=== PATIENT | male | born 1955 | race Caucasian/White ===

== ENCOUNTER 2018-07-18 08:54 | Emergency (ER) | payer SELFPAY ==
[2018-07-18 10:12] LABS: Absolute Monocytes 0.6 K/uL (0.1-1.3); Absolute Neutrophil 3.6 K/uL (1.8-8.0); Basophils % 1.1 % (0-1.3); Hematocrit 45.9 % (39.6-49.0); Lymphocytes % 19.6 % (15.3-44.8); MPV 8.5 fL (7.6-11.3); Monocytes % 11.3 % (3.3-12.3); RBC Red Blood Cell Count 4.56 M/uL (4.33-5.43)
[2018-07-18] MEDS ORDERED: HYDROCODONE/APAP 7.5/325 MG TAB ONE (10:14)
[2018-07-18 10:30] LABS: Albumin 3.5 g/dL (3.4-5.0); Bilirubin Direct 0.2 mg/dL (0-0.2); Bilirubin Total 0.6 mg/dL (0.2-1.0); Protein, Total 7.4 g/dL (6.4-8.2)
[2018-07-18 10:35] LABS: Potassium 2.9 mmol/L (3.5-5.1)
--- NOTE | 2018-07-18 11:16 | RAD REPORT ---
EXAM DESCRIPTION: CT - Stone Protocol - 07/18/2018 10:53 am CLINICAL HISTORY: Abdominal pain. Right groin pain COMPARISON: None. TECHNIQUE: Computed axial tomography of the abdomen pelvis was obtained without oral or IV contrast. Lack of IV and oral contrast limits evaluation of solid organs, bowel, and vessels. Coronal reformat camila images were obtained and reviewed. All CT scans are performed using dose optimization technique as appropriate and may include automated exposure control or mA/KV adjustment according to patient size. FINDINGS: Small nonobstructing bilateral renal calculi. Ureteral calculus is not seen. A bladder corina culus is not noted Fatty liver. Splenic granulomata. Tiny left adrenal nodule suspected. Right adrenal gland unremarkable. Pancreas appears grossly normal Diverticula stem from the colon without evidence of diverticulitis. The appendix appears normal Spondylosis involves the lumbar spine resulting spinal stenosis IMPRESSION: Small nonobstructing renal calculi
[2018-07-18] MEDS ORDERED: POTASSIUM 25 MEQ EFFERV TAB ONE ×2 (11:20→13:03)
[2018-07-18] MEDS ORDERED: KETOROLAC 30 MG/ML INJ ONE (11:46)
--- NOTE | 2018-07-18 12:16 | RAD REPORT ---
EXAM DESCRIPTION: US - Scrotum Testicles - 07/18/2018 12:03 pm CLINICAL HISTORY: Scrotal pain COMPARISON: None FINDINGS: Right testicle measures 3.2 x 1.9 x 3 centimeters. Echotexture is homogeneous. Normal bloo d flow Left testicle measures 3.4 x 1.6 x 2.7 centimeters. Echotexture is homogeneous. Normal blood flow The epididymides are normal in size and echotexture. Normal blood flow is seen. A 4 millimeter right epididymal cyst IMPRESSION: 4 millimeter right epididymal cyst Otherwise unremarkable exam
[2018-07-18] MEDS ORDERED: NA CHLORIDE 0.9% 1,000 ML ONE (12:26)
--- NOTE | 2018-07-18 12:35 | EDPHYS ---
Physician Documentation [facility] Name: Mahad Jamison Age: 62 yrs Sex: Male : 1955 Arrival Date: 07/18/2018 Time: 08:58 Bed 18 Private MD: ED Physician Dante Prajapati HPI: 07/18 09:45 This 62 yrs old Male presents to ER via Ambulatory with complaints of Groin cp Pain. 09:45 The patient presents with scrotal pain, of the right side, tenderness, of the right cp roin and right testicle, of the right inguinal area. 09:45 Onset: The symptoms/episode began/occurred 2 week(s) ago. Associated signs and cp symptoms: Pertinent negatives: abdominal pain, constipation, diarrhea, dysuria, fever, hematuria. Severity of symptoms: in the emergency department the symptoms are unchanged, despite home interventions. Historical: - Allergies: 09:18 No Known Allergies; em - Home Meds: 09:18 None [Active]; em - PMHx: 09:18 None; em - PSHx: 09:18 None; em - Immunization history:: Adult Immunizations up to date. - Social history:: Smoking status: unknown. - Ebola Screening: : Patient negative for fever greater than or equal to 101.5 degrees Fahrenheit, and additional compatible Ebola Virus Disease symptoms Patient denies exposure to infectious person Patient denies travel to an Ebola-affected area in the 21 days before illness onset No symptoms or risks identified at this time. ROS: 09:50 Constitutional: Positive for chills, Negative for body aches, fever, poor PO intake. cp 09:50 Eyes: Negative for injury, pain, redness, and discharge. cp 09:50 ENT: Negative for drainage from ear(s), ear pain, sore throat, difficulty swallowing, difficulty handling secretions. 09:50 Cardiovascular: Negative for chest pain, edema, palpitations. 09:50 Respiratory: Negative for cough, shortness of breath, wheezing. 09:50 Abdomen/GI: Negative for abdominal pain, nausea, vomiting, and diarrhea, constipation, black/tarry stool, rectal bleeding. 09:50 Back: Negative for pain at rest, pain with movement, radiated pain. 09:50 : Positive for testicular pain right groin pain, Negative for urinary symptoms, flank pain. 09:50 Skin: Negative for cellulitis, rash. 09:50 Neuro: Negative for altered mental status, headache, weakness. 09:50 All other systems are negative. Exam: 10:00 Constitutional: The patient appears in no acute distress, alert, awake, cp non-diaphoretic, non-toxic, well developed, well nourished. 10:00 Head/Face: Normocephalic, atraumatic. cp 10:00 Eyes: Periorbital structures: appear normal, Conjunctiva: normal, no exudate, no injection, Sclera: no appreciated abnormality, Lids and lashes: appear normal, bilaterally. 10:00 ENT: External ear(s): are unremarkable, Nose: is normal, Mouth: Lips: moist, Oral mucosa: moist, Posterior pharynx: is normal, airway is patent, no erythema, no exudate. 10:00 Chest/axilla: Inspection: normal. 10:00 Cardiovascular: Rate: normal, Rhythm: regular. 10:00 Respiratory: the patient does not display signs of respiratory distress, Respirations: normal, no use of accessory muscles, no retractions, no splinting, no tachypnea, labored breathing, is not present, Breath sounds: are clear throughout, no decreased breath sounds, no stridor, no wheezing. 10:00 Abdomen/GI: Inspection: abdomen appears normal, Bowel sounds: active, all quadrants, Palpation: abdomen is soft and non-tender, in all quadrants, rebound tenderness, is not appreciated, voluntary guarding, is not appreciated, involuntary guarding, is not appreciated, Hernia: not appreciated. 10:00 : Male external genitalia: tenderness, is palpated in the right inguinal area, of the epididymis area, that is moderate. 10:00 Skin: cellulitis, is not appreciated, no rash present. 11:14 ECG was reviewed by the Attending Physician. cp Vital Signs: 09:18 BP 188 / 93; Pulse 80; Resp 18; Temp 97.8(O); Pulse Ox 100% on R/A; Weight 72.57 kg; em Height 5 ft. 6 in. (167.64 cm); Pain 8/10; 10:00 BP 166 / 100; Pulse 67; Resp 18; Pulse Ox 99% on R/A; em 11:17 BP 180 / 83; Pulse 65; Resp 18; Pulse Ox 99% on R/A; Pain 7/10; em 09:18 Body Mass Index 25.82 (72.57 kg, 167.64 cm) em MDM: 09:08 Patient medically screened. cp 10:00 Differential diagnosis: nonspecific abdominal pain, appendicitis, UTI, urinary cp retention, prostatitis, urethritis. 12:33 Data reviewed: vital signs, nurses notes, lab test result(s), EKG, radiologic studies, cp CT scan, ultrasound. 12:33 Test interpretation: by ED physician or midlevel provider: ECG. Counseling: I had a cp detailed discussion with the patient and/or guardian regarding: the historical points, exam findings, and any diagnostic results supporting the discharge/admit diagnosis, the presence of at least one elevated blood pressure reading (>120/80) during this emergency department visit, lab results, radiology results, to return to the emergency department if symptoms worsen or persist or if there are any questions or concerns that arise at home. Response to treatment: the patient's symptoms have markedly improved after treatment, and as a result, I will discharge patient. ED course: VSS. Pain improved with meds. Will discharge to home for continued monitoring. 07/18 09:42 Order name: Basic Metabolic Panel; Complete Time: 12:11 cp 07/18 12:25 Interpretation: Normal except: K 2.9; GLUC 107; BUN 6; GFR 81. 07/18 09:42 Order name: CBC with Diff; Complete Time: 10:20 cp 07/18 09:42 Order name: Creatinine for Radiology; Complete Time: 10:20 07/18 09:42 Order name: Hepatic Function; Complete Time: 12:11 07/18 09:42 Order name: Lipase; Complete Time: 12:11 07/18 09:44 Order name: Urine Microscopic Only 07/18 09:43 Order name: US Scrotum Testicles; Complete Time: 12:25 07/18 12:31 Interpretation: Report reviewed. 07/18 10:21 Order name: CT Stone Protocol; Complete Time: 12:11 cp 07/18 12:29 Order name: Urine Dipstick--Ancillary (enter results) dh3 07/18 12:30 Order name: Urine Dipstick-Ancillary EDMS 07/18 09:42 Order name: IV Saline Lock; Complete Time: 09:54 07/18 09:42 Order name: Labs collected and sent; Complete Time: 09:54 cp 07/18 10:36 Order name: EKG: hypokalemia; Complete Time: 10:37 cp 07/18 10:36 Order name: EKG - Nurse/Tech: hypokalemia; Complete Time: 11:13 cp EC:14 Rate is 64 beats/min. Rhythm is regular. MN interval is normal. QRS interval is cp prolonged at 126 msec. QT interval is normal. Interpreted by me. Reviewed by me. Administered Medications: 10:08 Drug: [place] (7.5 mg-325 mg) 1 tabs Route: PO; em 11:00 Follow up: Response: No adverse reaction; Pain is unchanged, physician notified em 11:13 Drug: Potassium Effervescent Tablet 50 mEq Route: PO; em 12:50 Follow up: Response: No adverse reaction em 11:32 Drug: TORadol 30 mg Route: IVP; Site: right antecubital; aa5 13:02 Drug: Rocephin 1 grams Route: IV; Rate: bolus; Site: right antecubital; aa5 13:03 Not Given (Patient Refused): NS 0.9% 1000 ml IV at 1 bolus Per protocol; 1000 mL bolus em 13:03 Drug: AZITHromycin 1 grams Route: PO; em 13:03 Drug: Potassium Effervescent Tablet 50 mEq Route: PO; em Disposition: 14:16 Co-signature as Attending Physician, Dante Prajapati MD I agree with the assessment and marlon plan of care. Disposition: 07/18/18 12:35 Discharged to Home. Impression: Right epididymal cyst, Hypokalemia. - Condition is Stable. - Discharge Instructions: Potassium Content of Foods, Epididymitis, Hypokalemia, Spermatocele. - Prescriptions for Tylenol- Codeine #3 300-30 mg Oral Tablet - take 2 tablets by ORAL route every 6 hours As needed no driving while taking medication; 15 tablet. Cipro 500 mg Oral Tablet - take 1 tablet by ORAL route every 12 hours for 7 days; 14 tablet. Diclofenac Sodium 75 mg Oral Tablet, Delayed Release (E.C.) - take 1 tablet by ORAL route 2 times per day; 20 tablet. - Medication Reconciliation Form, Thank You Letter, Antibiotic Education, Prescription Opioid Use form. - Follow up: Jose Miguel Crisostomo MD; When: 2 - 3 days; Reason: Recheck today's complaints. - Problem is new. - Symptoms have improved. Signatures: Dispatcher [employer] Dante Melendez MD MD cha Munoz, Edgar, MEDICAL TECH MEDICAL TECH em Mariana Cornejo, RN RN aa5 Dante Busch PA PA cp Corrections: (The following items were deleted from the chart) 12:49 12:35 07/18/2018 12:35 Discharged to Home. Impression: Right epididymal cyst. Condition cp is Stable. Forms are Medication Reconciliation Form, Thank You Letter, Antibiotic Education, Prescription Opioid Use. Follow up: Jose Miguel Crisostomo; When: 2 - 3 days; Reason: Recheck today's complaints. Problem is new. Symptoms have improved. cp 13:05 12:49 07/18/2018 12:35 Discharged to Home. Impression: Right epididymal cyst; em Hypokalemia. Condition is Stable. Discharge Instructions: Epididymitis, Spermatocele. Prescriptions for Tylenol-Codeine #3 300-30 mg Oral Tablet - take 2 tablets by ORAL route every 6 hours As needed no driving while taking medication; 15 tablet, Cipro 500 mg Oral Tablet - take 1 tablet by ORAL route every 12 hours for 7 days; 14 tablet, Diclofenac Sodium 75 mg Oral Tablet, Delayed Release (E.C.) - take 1 tablet by ORAL route 2 times per day; 20 tablet. and Forms are Medication Reconciliation Form, Thank You Letter, Antibiotic Education, Prescription Opioid Use. Follow up: Jose Miguel Crisostomo; When: 2 - 3 days; Reason: Recheck today's complaints. Problem is new. Symptoms have improved. cp
--- NOTE | 2018-07-18 12:35 | ER ---
Nurse's Notes [facility] Name: Mahad Jamison Age: 62 yrs Sex: Male : 1955 Arrival Date: 07/18/2018 Time: 08:58 Bed 18 Private MD: Diagnosis: Right epididymal cyst;Hypokalemia Presentation: 07/18 09:15 Presenting complaint: Patient states: right testicle pain that started about 2 weeks em ago, denies redness, swelling, fever, burning with urination, reports feeling hot and cold. Transition of care: patient was not received from another setting of care. Onset of symptoms was July 05, 2018. Risk Assessment: Do you want to hurt yourself or someone else? Patient reports no desire to harm self or others. Initial Sepsis Screen: Does the patient meet any 2 criteria? No. Patient's initial sepsis screen is negative. Does the patient have a suspected source of infection? No. Patient's initial sepsis screen is negative. Care prior to arrival: None. 09:15 Method Of Arrival: Ambulatory em 09:15 Acuity: EVERARDO 3 aa5 Triage Assessment: 09:18 General: Appears in no apparent distress. uncomfortable, Behavior is calm, cooperative. em Pain: Complains of pain in right testicle. Historical: - Allergies: 09:18 No Known Allergies; em - Home Meds: 09:18 None [Active]; em - PMHx: 09:18 None; em - PSHx: 09:18 None; em - Immunization history:: Adult Immunizations up to date. - Social history:: Smoking status: unknown. - Ebola Screening: : Patient negative for fever greater than or equal to 101.5 degrees Fahrenheit, and additional compatible Ebola Virus Disease symptoms Patient denies exposure to infectious person Patient denies travel to an Ebola-affected area in the 21 days before illness onset No symptoms or risks identified at this time. Screenin:18 Abuse screen: Denies threats or abuse. Nutritional screening: No deficits noted. em Tuberculosis screening: No symptoms or risk factors identified. Fall Risk None identified. Assessment: 09:19 General: Appears in no apparent distress. uncomfortable, Behavior is calm, cooperative, em Denies fever. Pain: Complains of pain in right testicle Pain currently is 8 out of 10 on a pain scale. Pain began 2 weeks ago. Neuro: Level of Consciousness is awake, alert, obeys commands, Oriented to person, place, time, situation. Cardiovascular: Capillary refill < 3 seconds Patient's skin is warm and dry. Respiratory: Airway is patent Respiratory effort is even, unlabored, Respiratory pattern is regular, symmetrical. GI: Patient currently denies nausea, vomiting. : Genitalia appear normal Reports pain testicle, Denies burning with urination, discharge. Derm: Skin is intact, is healthy with good turgor, Skin is pink, warm \T\ dry. Musculoskeletal: Capillary refill < 3 seconds, Range of motion: intact in all extremities. 09:19 Reassessment: I agree with assessment completed by El Santos LVN . aa5 10:00 Reassessment: request something for pain, provider notified, new medication orders em received. 11:16 Reassessment: Patient appears in no apparent distress at this time. Patient and/or em family updated on plan of care and expected duration. Pain level reassessed. Patient is alert, oriented x 3, equal unlabored respirations, skin warm/dry/pink. reports pain is 7/10, provider notified, new medication orders received. Vital Signs: 09:18 BP 188 / 93; Pulse 80; Resp 18; Temp 97.8(O); Pulse Ox 100% on R/A; Weight 72.57 kg; em Height 5 ft. 6 in. (167.64 cm); Pain 8/10; 10:00 BP 166 / 100; Pulse 67; Resp 18; Pulse Ox 99% on R/A; em 11:17 BP 180 / 83; Pulse 65; Resp 18; Pulse Ox 99% on R/A; Pain 7/10; em 09:18 Body Mass Index 25.82 (72.57 kg, 167.64 cm) em ED Course: 08:58 Patient arrived in ED. mr 09:05 El Santos LVN is Primary Nurse. em 09:08 Dante Busch PA is PHCP. cp 09:08 Dante Prajapati MD is Attending Physician. cp 09:18 Arm band placed on. em 09:18 Patient has correct armband on for positive identification. Bed in low position. Call em light in reach. Side rails up X2. Adult w/ patient. Pulse ox on. NIBP on. 09:30 Triage completed. aa5 09:54 Inserted saline lock: 20 gauge in right antecubital area, using aseptic technique. ms Blood collected. 10:53 CT Stone Protocol In Process Unspecified. EDMS 12:03 US Scrotum Testicles In Process Unspecified. EDMS 12:33 Jose Miguel Crisostomo MD is Referral Physician. cp 13:04 IV discontinued, intact, bleeding controlled, No redness/swelling at site. Pressure em dressing applied. 13:04 No provider procedures requiring assistance completed. em Administered Medications: 10:08 Drug: [place] (7.5 mg-325 mg) 1 tabs Route: PO; em 11:00 Follow up: Response: No adverse reaction; Pain is unchanged, physician notified em 11:13 Drug: Potassium Effervescent Tablet 50 mEq Route: PO; em 12:50 Follow up: Response: No adverse reaction em 11:32 Drug: TORadol 30 mg Route: IVP; Site: right antecubital; aa5 13:02 Drug: Rocephin 1 grams Route: IV; Rate: bolus; Site: right antecubital; aa5 13:03 Not Given (Patient Refused): NS 0.9% 1000 ml IV at 1 bolus Per protocol; 1000 mL bolus em 13:03 Drug: AZITHromycin 1 grams Route: PO; em 13:03 Drug: Potassium Effervescent Tablet 50 mEq Route: PO; em Outcome: 12:35 Discharge ordered by MD. cp 13:05 Discharged to home ambulatory. em 13:05 Condition: good 13:05 Discharge instructions given to patient, family, Instructed on discharge instructions, follow up and referral plans. no drinking with medication, no driving heavy equipment, medication usage, Demonstrated understanding of instructions, follow-up care, medications, Prescriptions given X 3. 13:05 Patient left the ED. em Signatures: Dispatcher [employer] EDPaula EscobarozEl, OPTIONS ADVISOR OPTIONS ADVISOR Deandra Shetty ms, Audri, RN RN aa5 Dante Busch PA PA cp
[2018-07-18 12:50] LABS: Urine Bacteria <20 /HPF (NONE SEEN)
[2018-07-18 12:51] LABS: Urine Culture Reflex Order NOT NEEDED; Urine Mucus 2+ /HPF (NONE SEEN)
[2018-07-18] MEDS ORDERED: AZITHROMYCIN 250 MG TAB ONE ×2 (13:03→13:12)
[2018-07-18] MEDS ORDERED: CEFTRIAXONE/SWI 1gm 1 GM/10 ML SYR ONE (13:04)
[2018-07-18 14:13] LABS: Urine Blood TRACE (NEG); Urine Glucose NEGATIVE (NEG); Urine Protein 2+ (NEG)
--- NOTE | 2018-07-19 09:25 | EKG ---
Test Date: 2018-07-18 Test Time: 11:09:09 Composite Bond Technician: MOI MEASUREMENT RESULTS: Intervals: Rate: 64 WI: 144 QRSD: 126 QT: 462 QTc: 476 [place]: P: 78 WI: 144 QRS: 66 T: 57 INTERPRETIVE STATEMENTS: Normal sinus rhythm Right bundle branch block Abnormal ECG No previous ECG available for comparison Electronically Signed On 07-19-18 09:22:00 CDT by Mahendra Blanc
== END 2018-07-18 13:05 | disposition home or self-care (01) ==
LOC: ER 08:54
DX: N50.3 Cyst of epididymis (principal); E87.6 Hypokalemia
CPT/HCPCS: 36415; 74176; 76377; 76870; 80048; 80076; 81003; 81015; 83690; 85025; 93005; 96374; 96375; 99284; J0696; J7030